=== PATIENT | male | born 1995 | race Two or more races ===

== ENCOUNTER 2021-06-25 12:27 | Emergency (ER) | payer OTHER ==
[~2021-06-25] VITALS: Ht 175.3 cm; Wt 104.3 kg
[2021-06-25] MEDS ORDERED: HYDROcodone-ACET 5/325MG TAB PO ONE (16:15)
[2021-06-25] MEDS ORDERED: TETANUS-DIPTH-ACEL PERTUSSIS 0.5ML SYR Tdap IM ONE (16:45)
[2021-06-25] MEDS ORDERED: cefTRIAXone SOD 1,000 MG VL IM ONE (16:45)
[2021-06-25 17:17] VITALS: BP 154/105
== END 2021-06-25 17:22 | disposition home or self-care (01) ==
LOC: ER 12:27
DX: S61.412A Laceration without foreign body of left hand, initial encounter (principal); W26.9XXA Contact with unspecified sharp object(s), initial encounter; Y93.89 Activity, other specified; Y92.69 Other specified industrial and construction area as the place of occurrence of the external cause; Y99.0 Civilian activity done for income or pay
CPT/HCPCS: 12002; 73130; 90471